=== PATIENT | female | born 1950 | race Caucasian/White ===

== ENCOUNTER 2020-05-15 13:36 | Observation (INO) ==
[2020-05-15] MEDS ORDERED: 0.9 % Sodium Chloride 500 ML IVC ONE (14:03)
[2020-05-15] MEDS ORDERED: Aspirin 81 MG TAB.CHEW PO ONE (14:03)
[2020-05-15 14:50] LABS: Basophils % 0.2 %; Hematocrit 35.2 % (35.3-44.9); Hemoglobin 10.9 g/dL (11.5-15.4); Immature Granulocytes % 0.7 % (0-4); Lymphocytes # 1.6 K/mcL (0.6-4.6); Lymphocytes % 26.7 %; Mean Corpuscular Hemoglobin 27.5 pg (28.0-33.3); Mean Corpuscular Volume 88.9 fL (83.0-100.0); Mean Platelet Volume 11.9 fL (9.4-12.4); Monocytes # 0.7 K/mcL (0.0-1.3); Monocytes % 11.6 %; Neutrophils # 3.6 K/mcL (1.6-8.9); Platelet Count 222 K/mcL (140-400); Red Blood Count 3.96 M/mcL (3.82-4.97); Red Cell Distribution Width 14.6 % (11.5-14.5); Segmented Neutrophils % 60.8 %
[2020-05-15 15:01] LABS: Prothrombin Time 11.8 Seconds (9.4-12.1)
[2020-05-15 15:12] LABS: Alanine Aminotransferase 14 Units/L (7-52); Albumin 4.2 g/dL (3.5-5.7); Albumin/Globulin Ratio 1.8 (1.1-2.2); Alkaline Phosphatase 26 Units/L (34-104); Aspartate Amino Transferase 12 Units/L (13-39); BUN/Creatinine Ratio 31 (6-26); Bilirubin,Direct 0.1 mg/dL (0.0-0.2); Bilirubin,Indirect 0.2 mg/dL (0.0-1.0); Bilirubin,Total 0.3 mg/dL (0.3-1.0); Blood Urea Nitrogen 36 mg/dL (8-23); Carbon Dioxide 26 mEq/L (23-29); Chloride 105 mEq/L (98-107); Globulin 2.3 g/dL (2.4-3.5); Glucose 252 mg/dL (70-105); Osmolality,Calculated 305 (280-300); Potassium 5.1 mEq/L (3.5-5.1); Sodium 139 mEq/L (136-145); Total Protein 6.5 g/dL (6.4-8.9); Troponin I < 0.03 ng/mL (< 0.04); eGFR For African Americans 57 (> 60); eGFR For Non-African Americans 47 (> 60)
[2020-05-15] MEDS ORDERED: Naloxone 0.4 MG/ML INJ IVP PRN (17:34)
[2020-05-15] MEDS ORDERED: Ondansetron 4 MG/2 ML VIAL IVP PRN (17:34)
[2020-05-15] MEDS ORDERED: Melatonin 3 MG TABLET PO PRN (17:34)
[2020-05-15] MEDS ORDERED: Perflutren Lipid Microsphere 1.3 ML in 0.9 % Sodium Chloride 8.7 ML IVP PRN (17:36)
[2020-05-15] MEDS ORDERED: Furosemide 20 MG TABLET PO PRN (17:44)
[2020-05-15] MEDS ORDERED: Dextrose Gel 15 GM/37.5 ML TUBE PO PRN ×2 (17:45)
[2020-05-15] MEDS ORDERED: D5% in Water 1,000 ML IVC PRN (17:45)
[2020-05-15] MEDS ORDERED: *HR* Dextrose 50 % in Water (Vial) 50 ML VIAL IVP PRN (17:45)
[2020-05-15] MEDS: *HR* Heparin 5,000 UNIT/ML VIAL SQ SCH (21:23)
[2020-05-15 23:17] LABS: Troponin I < 0.03 ng/mL (< 0.04)
[2020-05-15 23:28] LABS: Thyroid Stimulating Hormone 5.146 mcIU/mL (0.340-5.600)
[2020-05-16 02:31] LABS: Basophils % 0.2 %; Eosinophils % 0.2 %; Hematocrit 31.9 % (35.3-44.9); Hemoglobin 9.9 g/dL (11.5-15.4); Immature Granulocytes % 0.5 % (0-4); Lymphocytes # 2.1 K/mcL (0.6-4.6); Lymphocytes % 36.4 %; Mean Corpuscular Hemoglobin 28.2 pg (28.0-33.3); Mean Corpuscular Volume 90.9 fL (83.0-100.0); Mean Platelet Volume 11.6 fL (9.4-12.4); Monocytes # 0.6 K/mcL (0.0-1.3); Monocytes % 10.5 %; Platelet Count 204 K/mcL (140-400); Red Blood Count 3.51 M/mcL (3.82-4.97); Red Cell Distribution Width 14.7 % (11.5-14.5); Segmented Neutrophils % 52.2 %; White Blood Count 5.8 K/mcL (4.3-11.1)
[2020-05-16 02:54] LABS: BUN/Creatinine Ratio 30 (6-26); Blood Urea Nitrogen 35 mg/dL (8-23); Calcium 9.2 mg/dL (8.6-10.3); Carbon Dioxide 26 mEq/L (23-29); Chloride 107 mEq/L (98-107); Glucose 98 mg/dL (70-105); Magnesium 1.7 mg/dL (1.6-2.6); Osmolality,Calculated 298 (280-300); Potassium 5.3 mEq/L (3.5-5.1); Sodium 140 mEq/L (136-145); eGFR For African Americans 55 (> 60); eGFR For Non-African Americans 46 (> 60)
[2020-05-16 02:55] LABS: Troponin I < 0.03 ng/mL (< 0.04)
[2020-05-16] MEDS: *HR* Heparin 5,000 UNIT/ML VIAL SQ SCH (05:58)
[2020-05-16] MEDS: Insulin LISPRO 300 UNITS/3 ML VIAL SUBQ SCH ×2 (07:23→11:35)
[2020-05-16] MEDS: *HR* HYDROcodone/Acet 5/325 mg TABLET PO PRN ×2 (07:37→13:39)
[2020-05-16] MEDS ORDERED: Famotidine 20 MG TABLET PO PRN (11:21)
[2020-05-16 11:25] VITALS: BP 141/62
[2020-05-16] MEDS ORDERED: Gabapentin 400 MG CAPSULE PO SCH (11:30)
[2020-05-16] MEDS ORDERED: Aspirin Enteric Coated 81 MG Tablet PO SCH (11:30)
[2020-05-17] MEDS ORDERED: hydroCHLOROthiazide 25 MG TABLET PO SCH (09:00)
[2020-05-17] MEDS ORDERED: Cholecalciferol (D-3) 1,000 UNIT (25MCG) TABLET PO SCH (09:00)
[2020-05-17] MEDS ORDERED: Cyanocobalamin (B-12) 1,000 MCG TABLET PO SCH (09:00)
== END 2020-05-16 17:00 | disposition home or self-care (01) ==
LOC: 3BNU 13:36 → EMEROOARM 13:36 → SUATTDRO 17:09 → 2NNU 17:31
PROVIDERS: ADMIT Internal Medicine; ATTEND Internal Medicine

== ENCOUNTER 2020-11-22 07:08 | Observation (INO) ==
[2020-11-22] MEDS ORDERED: *HR* Propofol 200 MG/20 ML VIAL IVP ONE (08:02)
[2020-11-22] MEDS ORDERED: Vancomycin 1,000 MG VIAL ONE (08:04)
[2020-11-22] MEDS ORDERED: *HR* Rocuronium Bromide 50 MG/5 ML VIAL ONE ×2 (08:05→10:24)
[2020-11-22] MEDS ORDERED: Lidocaine -MPF 2% 5 ML VIAL ONE (08:05)
[2020-11-22] MEDS ORDERED: Ondansetron 4 MG/2 ML VIAL ONE (08:05)
[2020-11-22] MEDS ORDERED: *HR* Succinylcholine 200 MG/10 ML VIAL IVP ONE (08:05)
[2020-11-22] MEDS ORDERED: Lidocaine HCL 4 ML Topical Solution (Laryng-O-Jet Kit Sterile Pak) TP ONE (08:05)
[2020-11-22] MEDS ORDERED: *HR* FentaNYL (PF) 100 MCG/2 ML VIAL ONE ×2 (08:07→10:29)
[2020-11-22] MEDS ORDERED: CeFAZolin Syr 2,000MG/20 ML 2,000 MG/20 ML SYRINGE IVPB ONE (08:13)
[2020-11-22] MEDS ORDERED: Ringers Solution, Lactated 1,000 ML IVC SCH (08:15)
[2020-11-22] MEDS ORDERED: Pregabalin 75 MG CAPSULE PO ONE (08:50)
[2020-11-22] MEDS ORDERED: Acetaminophen IV 1,000 MG/100 ML BAG IVPB ONE (08:50)
[2020-11-22] MEDS ORDERED: Famotidine 20 MG TABLET PO ONE (08:50)
[2020-11-22] MEDS ORDERED: Polymyxin B Sulfate 500,000 UNIT, Sodium Chloride IRRigation 1,000 ML IR ONE (09:20)
[2020-11-22] MEDS ORDERED: EPHEDrine 50 MG/ML VIAL ONE ×2 (09:50→10:21)
[2020-11-22] MEDS ORDERED: *HR* Magnesium Sulfate 1 GM/2 ML VIAL ONE (10:48)
[2020-11-22 11:44] LABS: VBG Base Excess 1 mEq/L; VBG Chloride 102 mEq/L (98-107); VBG Glucose 212 mg/dl (65-95); VBG HCO3 27 mEq/L (21-27); VBG Oxygen Saturation 84 %; VBG PCO2 47 mmHg (41-51); VBG PH 7.37 pH Units (7.32-7.42); VBG PO2 51 mmHg (25-50); VBG Total CO2 29 mEq/L
[2020-11-22] MEDS ORDERED: *HR* HYDROMORPHONE 2 MG/ML VIAL ONE (11:56)
[2020-11-22] MEDS ORDERED: *HR* HYDROmorphone PF 0.5 MG/0.5 ML SYRINGE IVP PRN (12:52)
[2020-11-22] MEDS ORDERED: *HR* FentaNYL (PF) 100 MCG/2 ML VIAL IVP PRN (12:52)
[2020-11-22] MEDS ORDERED: *HR* OxyCODONE Immed Rel 5 MG TABLET PO PRN (12:52)
[2020-11-22] MEDS ORDERED: Ondansetron 4 MG/2 ML VIAL IVP PRN (12:52)
[2020-11-22] MEDS ORDERED: Acetaminophen 325 MG TABLET PO PRN (14:31)
[2020-11-22] MEDS ORDERED: Famotidine 20 MG TABLET PO PRN (14:31)
[2020-11-22 17:17] LABS: Hematocrit 25.5 % (35.3-44.9); Hemoglobin 7.7 g/dL (11.5-15.4)
[2020-11-22] MEDS ORDERED: 0.9 % Sodium Chloride 1,000 ML ONE (18:52)
[2020-11-22] MEDS: ceFAZolin 2,000 MG in 0.9 % Sodium Chloride 100 ML IVPB SCH (19:06)
[2020-11-22] MEDS: *HR* Metformin 500 MG TABLET PO SCH (20:34)
[2020-11-22] MEDS: *HR* HYDROcodone/Acet 5/325 mg TABLET PO PRN (20:40)
[2020-11-22] MEDS ORDERED: 0.9 % Sodium Chloride 250 ML ONE (22:55)
[2020-11-23] MEDS: *HR* OxyCODONE Immed Rel 5 MG TABLET PO PRN ×5 (02:05→20:00)
[2020-11-23] MEDS: ceFAZolin 2,000 MG in 0.9 % Sodium Chloride 100 ML IVPB SCH (02:14)
[2020-11-23] MEDS ORDERED: 0.9 % Sodium Chloride 250 ML ONE (02:53)
[2020-11-23] MEDS: *HR* HYDROcodone/Acet 5/325 mg TABLET PO PRN ×2 (03:21→09:45)
[2020-11-23] MEDS ORDERED: Cholecalciferol (D-3) 1,000 UNIT (25MCG) TABLET PO SCH (09:00)
[2020-11-23] MEDS ORDERED: Cyanocobalamin (B-12) 1,000 MCG TABLET PO SCH (09:00)
[2020-11-23] MEDS ORDERED: Ascorbic Acid 500 MG TABLET PO SCH (09:00)
[2020-11-23] MEDS ORDERED: Fenofibrate 54 MG TABLET PO SCH (09:00)
[2020-11-23] MEDS ORDERED: hydroCHLOROthiazide 25 MG TABLET PO SCH (09:00)
[2020-11-23] MEDS ORDERED: Aspirin Enteric Coated 81 MG Tablet PO SCH (09:00)
[2020-11-23] MEDS: Furosemide 20 MG TABLET PO SCH ×2 (09:39→12:29)
[2020-11-23] MEDS: *HR* Metformin 500 MG TABLET PO SCH (09:39)
[2020-11-23] MEDS: Valsartan 160 MG TABLET PO SCH ×2 (09:39→12:28)
[2020-11-23] MEDS: Spironolactone 25 MG TABLET PO SCH ×2 (09:39→12:29)
[2020-11-23 10:43] LABS: Basophils % 0.1 %; Hematocrit 27.2 % (35.3-44.9); Hemoglobin 8.6 g/dL (11.5-15.4); Immature Granulocytes % 0.9 % (0-4); Lymphocytes # 0.9 K/mcL (0.6-4.6); Lymphocytes % 11.5 %; Mean Corpuscular HGB Conc 31.6 g/dL (31.6-35.5); Mean Corpuscular Hemoglobin 28.8 pg (28.0-33.3); Mean Platelet Volume 10.7 fL (9.4-12.4); Monocytes # 1.1 K/mcL (0.0-1.3); Monocytes % 13.8 %; Neutrophils # 5.6 K/mcL (1.6-8.9); Platelet Count 166 K/mcL (140-400); Red Blood Count 2.99 M/mcL (3.82-4.97); Red Cell Distribution Width 15.1 % (11.5-14.5); Segmented Neutrophils % 73.7 %; White Blood Count 7.7 K/mcL (4.3-11.1)
[2020-11-23 10:54] LABS: BUN/Creatinine Ratio 29 (6-26); Blood Urea Nitrogen 28 mg/dL (8-23); Calcium 8.5 mg/dL (8.6-10.3); Carbon Dioxide 27 mEq/L (23-29); Chloride 103 mEq/L (98-107); Glucose 154 mg/dL (70-105); Osmolality,Calculated 291 (280-300); Potassium 3.9 mEq/L (3.5-5.1); Sodium 136 mEq/L (136-145); eGFR For African Americans > 60 (> 60); eGFR For Non-African Americans 56 (> 60)
[2020-11-23] MEDS ORDERED: diazePAM 5 MG TABLET PO PRN (11:04)
[2020-11-23] MEDS: 0.9 % Sodium Chloride 1,000 ML IVC SCH ×2 (15:40→15:47)
[2020-11-23] MEDS ORDERED: Ondansetron 4 MG/2 ML VIAL IVP PRN (19:50)
[2020-11-23] MEDS ORDERED: Naloxone 0.4 MG/ML INJ IVP PRN (19:50)
[2020-11-23] MEDS ORDERED: CeFAZolin 2 GM/120 ML BAG IVPB SCH (19:50)
[2020-11-23] MEDS: Metoprolol XL (24 HR) Succ 25 MG TAB.ER.24H PO SCH (20:00)
[2020-11-23] MEDS ORDERED: Ketorolac 30 MG/ML VIAL IVP ONE (20:10)
[2020-11-23] MEDS ORDERED: diazePAM 10 MG TABLET PO PRN (20:13)
[2020-11-24] MEDS: *HR* OxyCODONE Immed Rel 5 MG TABLET PO PRN ×5 (00:29→22:13)
[2020-11-24 05:09] LABS: Basophils % 0.1 %; Eosinophils % 0.1 %; Hematocrit 26.1 % (35.3-44.9); Hemoglobin 8.2 g/dL (11.5-15.4); Immature Granulocytes % 0.8 % (0-4); Lymphocytes # 0.9 K/mcL (0.6-4.6); Lymphocytes % 12.3 %; Mean Corpuscular HGB Conc 31.4 g/dL (31.6-35.5); Mean Corpuscular Hemoglobin 28.5 pg (28.0-33.3); Mean Corpuscular Volume 90.6 fL (83.0-100.0); Mean Platelet Volume 10.7 fL (9.4-12.4); Monocytes # 1.1 K/mcL (0.0-1.3); Monocytes % 15.7 %; Neutrophils # 5.1 K/mcL (1.6-8.9); Platelet Count 161 K/mcL (140-400); Red Blood Count 2.88 M/mcL (3.82-4.97); Red Cell Distribution Width 15.4 % (11.5-14.5); White Blood Count 7.2 K/mcL (4.3-11.1)
[2020-11-24] MEDS: Ringers Solution, Lactated 1,000 ML IVC SCH ×4 (07:39→17:45)
[2020-11-24] MEDS: *HR* HYDROcodone/Acet 5/325 mg TABLET PO PRN ×2 (09:16→15:45)
[2020-11-24] MEDS: Metoprolol XL (24 HR) Succ 25 MG TAB.ER.24H PO SCH (09:16)
[2020-11-25] MEDS: *HR* HYDROcodone/Acet 5/325 mg TABLET PO PRN ×2 (00:54→08:24)
[2020-11-25] MEDS: *HR* OxyCODONE Immed Rel 5 MG TABLET PO PRN ×3 (03:29→21:12)
[2020-11-25 05:48] LABS: Hematocrit 28.6 % (35.3-44.9); Hemoglobin 9.1 g/dL (11.5-15.4)
[2020-11-25] MEDS: Metoprolol XL (24 HR) Succ 25 MG TAB.ER.24H PO SCH (08:24)
[2020-11-25] MEDS: diazePAM 10 MG TABLET PO PRN ×2 (08:53→23:38)
[2020-11-25] MEDS: Gabapentin 400 MG CAPSULE PO SCH ×2 (16:38→19:41)
[2020-11-26] MEDS: *HR* HYDROcodone/Acet 5/325 mg TABLET PO PRN ×2 (01:20→08:16)
[2020-11-26] MEDS: *HR* OxyCODONE Immed Rel 5 MG TABLET PO PRN ×2 (01:55→05:55)
[2020-11-26 06:29] VITALS: BP 140/67; PULSE 77; TEMP 98.8; O2SAT 99
[2020-11-26] MEDS: Metoprolol XL (24 HR) Succ 25 MG TAB.ER.24H PO SCH (08:11)
[2020-11-26] MEDS: Gabapentin 400 MG CAPSULE PO SCH (08:12)
[2020-11-26] MEDS ORDERED: FLU Vac QV 21-22 (6Month+)/PF 0.5 ML SYRINGE IM ONE (11:04)
== END 2020-11-26 12:19 ==
LOC: 4WAOSI 07:08 → SDCAOSI 07:08 → 4WAOSI 14:49
PROVIDERS: ADMIT Orthopaedic Surgery Orthopaedic Surgery of the Spine; ATTEND Orthopaedic Surgery Orthopaedic Surgery of the Spine